=== PATIENT | male | born 1975 | race Caucasian/White ===

== ENCOUNTER 2017-05-03 19:00 | Inpatient (IN) | payer OTHER ==
[~2017-05-03] VITALS: Ht 175.3 cm; Wt 117.9 kg
--- NOTE | ~2017-05-03 | HP ---
Unit #: [id number] #: [id number] Patient: SELINA ELLSWORTH [id number] [place] [address] [id number] MR#: [id number] NAME: SELINA ELLSWORTH ROOM: P255 Age: 42 Sex: M Admission Date: 05/03/2017 : 1975 Attending Physician: Tuan Mckeon M.D. Admitting Physician: Tuan Mckeon M.D. Primary Care Physician: Dorothy Doctor Not In System HISTORY AND PHYSICAL HISTORY OF PRESENT ILLNESS Selina is a 42-year-old male admitted on 05/03/2017 to [facility] after attempted suicide. PAST MEDICAL HISTORY 1. Hypertension. 2. Obesity. 3. GERD. PAST SURGICAL HISTORY Cyst removed from his abdomen. ALLERGIES No known drug allergies. SOCIAL HISTORY He smokes 1-1/2 packs of cigarettes daily. Occasional marijuana use and no alcohol use. He is currently from his and living with his mother. FAMILY HISTORY Noncontributory. REVIEW OF SYSTEMS CONSTITUTIONAL: No fever or chills. HEENT: Denies any sore throat, ear pain or runny nose. CARDIOVASCULAR: Denies chest pain, irregular heart rhythm or palpitations. CHEST: Denies shortness of breath or cough. No hemoptysis. GASTROINTESTINAL: Denies nausea, vomiting, diarrhea or chronic constipation. ENDOCRINE: Denies history of increased thirst or urination. No recent significant weight loss or gain. GENITOURINARY: Denies dysuria, frequency, or hematuria. SKIN: Denies any rashes. HEMATOLOGIC: Denies history of increased bleeding or bruising. MUSCULOSKELETAL: Denies any hot, swollen joints. No generalized muscle pain. NEUROLOGIC: Denies problems with vision or speech. No frequent, severe headaches. No numbness, tingling or weakness in any extremities. Denies loss of bladder or bowel control. CURRENT MEDICATIONS 1. Vraylar. Unit #: [id number] #: [id number] Patient: SELINA ELLSWORTH 2. Gabapentin. 3. Vistaril. 4. Lisinopril. 5. Omeprazole. 6. Oxcarbazepine. PHYSICAL EXAMINATION GENERAL: Alert, oriented, in no acute distress. VITAL SIGNS: Blood pressure 152/109, heart rate 97, temperature 97.7. HEIGHT: 5 feet 9. WEIGHT: 260 pounds. SKIN: Warm and dry without rash or lesion. HEENT: Normocephalic. TMs not viewed. Oral and nasal passages clear. Conjunctivae clear. PERRLA. EOMs intact. NECK: Supple without lymphadenopathy or thyromegaly. HEART: Regular rate and rhythm without murmur. LUNGS: Clear. ABDOMEN: Soft, nontender, without masses or hepatosplenomegaly. : Not done. EXTREMITIES: No evidence of cyanosis, clubbing or edema. Moves all without focal deficit. NEUROLOGICAL: Grossly within normal limits. Cranial Nerves: II: Visual ron are intact. III, IV AND : Extraocular movements are intact. Pupils are equal, round and reactive to light. V: Facial sensation is grossly normal. VII: Facial movements and expression are normal. VIII: Auditory acuity grossly intact. IX, X: Uvula is midline. Phonation is normal. XI: Patient shrugs shoulders and turns head normally. XII: Tongue protrudes in the midline. Sensory and Motor Function: Sensory and motor sensation is grossly normal. Motor: moves all extremities well. Coordination: Gait is normal. Deep Tendon Reflexes: Intact. IMPRESSION 1. Psychiatric admission. 2. Hypertension. 3. Obesity. 4. Gastroesophageal reflux disease. RECOMMENDATIONS PSYCHIATRIC: Per psychiatrist. MEDICAL: No contraindication to participate in facility's activities. MEDICAL PROGNOSIS Good. MEDICAL CONDITION Stable. Dictated by... Rosa Martinez A.P.R.N. [facility] Unit #: [id number] #: [id number] Patient: SELINA ELLSWORTH TD: 05/04/2017 22:08 JOB #: [id number] HISTORY AND PHYSICAL Page 1 of 1 X ROSA MARCH APRN HISTORY AND PHYSICAL
--- NOTE | ~2017-05-03 | PA ---
Unit #: [id number] #: [id number] Patient: SELINA ELLSWORTH [id number] [place] [address] [id number] MR#: [id number] NAME: SELINA ELLSWORTH ROOM: P255 Age: 42 Sex: M Admission Date: 05/03/2017 : 1975 Date of Assessment: 05/04/2017 Attending Physician: Tuan Mckeon M.D. Admitting Physician: Tuan Mckeon M.D. Primary Care Physician: Generic Doctor Not In System PSYCHIATRIC ASSESSMENT IDENTIFYING INFORMATION The patient is a 42-year-old single white male with history of bipolar disorder admitted complaining of depressed mood and suicidal ideation. CHIEF COMPLAINT None given. INFORMANT(S) Patient, reliability is good. HISTORY OF PRESENT ILLNESS The patient is a 42-year-old white male who was admitted to [facility] reporting positive suicidal ideation. the patient had reported a suicide attempt related to a custody situation. The patient had apparently put some pills in his mouth, but these were removed by his partner who witnessed this episode. The patient reports that he was hospitalized at this facility last year under the care of this physician. He was started on oxcarbazepine at that time. He was recently started on Vraylar at [facility], but is still only on the 1.5-mg dose of this medication. For more complete history of present illness, please refer to previously dictated notes. PAST PSYCHIATRIC HISTORY Reviewed, no changes. PAST MEDICAL HISTORY Reviewed, no changes. MEDICATIONS Vraylar, gabapentin, Vistaril, lisinopril, Omeprazole, and oxcarbazepine. ALLERGIES None. FAMILY HISTORY Reviewed, no changes. SOCIAL HISTORY Reviewed, no changes. MENTAL STATUS EXAMINATION Examination at this time reveals the patient to be a morbidly obese white male appearing stated age. He is in no apparent physical distress at the Unit #: [id number] #: [id number] Patient: SELINA ELLSWORTH time of examination. He is awake, alert, and oriented in all spheres. His mood is mildly dysphoric, his affect constricted. Speech is generally well-coherent. There are no gross deficits in memory or cognition noted. Intelligence is judged to be in the average range based on fund of knowledge. The patient is cooperative throughout the interview. He is currently endorsing positive suicidal ideation. He denies homicidal ideation. He denies any psychotic symptoms. His judgment and insight appear to be intact. ASSETS AND LIABILITIES The patient's assets: Motivation for change. Liabilities: Lack of resources. DIAGNOSTIC IMPRESSION 1. Bipolar disorder, depressed phase. 2. Adjustment disorder, depressed mood. 3. Cannabis use disorder. 4. Morbid obesity. TREATMENT PLAN The patient remains hospitalized for safety and stabilization. We will continue previously prescribed medications increasing Vraylar from 1.5 to 3 mg daily. The patient will participate in appropriate order of milieu activities with suicide precautions remaining in place. ESTIMATED LENGTH OF STAY 3 to 4 days. Followup will take place through the auspices of [facility], and the patient may be a good candidate for participation in the intensive outpatient program. Dictated by... Tuan Mckeon M.D. Zachary TD: 05/04/2017 13:49 JOB #: [id number] PSYCHIATRIC ASSESSMENT Page 1 of 1 X Tuan Mckeon MD X PSYCHIATRIC ASSESSMENT
--- NOTE | ~2017-05-03 | DS ---
Unit #: [id number] #: [id number] Patient: SELINA ELLSWORTH [id number] [facility] [address] [place] [address] [id number] MR#: [id number] NAME: SELINA ELLSWORTH ROOM: [facility] Age: 42 Sex: M Admission Date: 05/03/2017 : 1975 Discharge Date: 05/05/2017 Attending Physician: Tuan Mckeon M.D. Primary Care Physician: Generic Doctor Not In System DISCHARGE SUMMARY REASON FOR ADMISSION The patient is a 42-year-old white male, admitted after he had become upset and suicidal related to child custody issues. HOSPITAL COURSE The patient was admitted to the [facility] and placed on suicide precautions. Vraylar was increased to 3 mg daily and other home medications were continued. The patient showed rapid improvement and by 05/05/2017, discharge was ordered. FINAL DIAGNOSES Bipolar disorder, most recent episode depressed; adjustment disorder; depressed mood; morbid obesity; hypertension; gastroesophageal reflux disease. DISPOSITION ON DISCHARGE The patient is discharged on the following medications: Vraylar 3 mg once daily for mood stabilization, Trileptal 600 mg b.i.d. for mood stabilization, melatonin 6 mg at bedtime p.r.n. insomnia, Protonix 40 mg daily for GERD, Zestril 10 mg once daily for hypertension, Vistaril 25 mg q.i.d. p.r.n. anxiety, and Neurontin 400 mg t.i.d. for chronic pain. DISCHARGE INSTRUCTIONS No dietary or physical restrictions were placed on the patient at the time of discharge. FOLLOWUP He will follow up through the auspices of "[facility]." PROGNOSIS His prognosis is fair. Dictated by... Tuan Mckeon M.D. CB/josel TD: 05/05/2017 14:57 JOB #: [id number] Unit #: [id number] #: [id number] Patient: SELINA ELLSWORTH DISCHARGE SUMMARY Page 1 of 1 X Tuan Mckeon MD X DISCHARGE SUMMARY
[2017-05-04 09:46] LABS: BASOPHIL# 0.1 X10e3 (0-0.3); BASOPHIL% 0.7 % (0-2.5); EOSINOPHIL# 0.3 X10e3 (0-0.7); EOSINOPHIL% 2.5 % (0.0-7.0); HEMATOCRIT 49.3 % (38.0-50.0); HEMOGLOBIN 16.4 gm/dL (13.0-16.0); LYMPHOCYTE# 4.1 X10e3 (1.0-3.5); LYMPHOCYTE% 41.3 % (17.0-45.0); MEAN CELL VOLUME 91.6 FL (83-96); MEAN CORPUSCULAR HEMOGLOBIN 30.4 PG (28-34); MEAN CORPUSCULAR HGB CONC 33.2 g/dL (30-36); MEAN PLATELET VOLUME 8.4 FL (6.5-11.5); MONOCYTE# 0.7 X10e3 (0-1.0); MONOCYTE% 7.5 % (3.0-12.0); NEUTROPHIL# 4.8 X10e3 (1.5-7.1); PLATELET COUNT 230 X10e3 (140-420); RED BLOOD COUNT 5.38 X10e (3.90-5.60); RED CELL DISTRIBUTION WIDTH 13.7 % (11.0-15.5)
[2017-05-04 09:56] LABS: DIFF IND NO
== END 2017-05-05 16:00 | disposition home or self-care (01) | DRG 885 ==
LOC: P2L 19:00
PROVIDERS: Specialist
DX: F31.9 Bipolar disorder, unspecified (principal); E66.01 Morbid (severe) obesity due to excess calories; R45.851 Suicidal ideations; F43.21 Adjustment disorder with depressed mood; F12.10 Cannabis abuse, uncomplicated; I10 Essential (primary) hypertension; K21.9 Gastro-esophageal reflux disease without esophagitis; F17.210 Nicotine dependence, cigarettes, uncomplicated; Z68.38 Body mass index [BMI] 38.0-38.9, adult
CPT/HCPCS: 85025